=== PATIENT | female | born 1945 | race Caucasian/White ===

== ENCOUNTER 2023-09-14 07:12 | Outpatient (CLI) | payer OTHER | END 2023-09-14 07:14 | disposition home or self-care (01) | LOC: MRI 07:12 | PROVIDERS: ATTEND Internal Medicine | DX: G44.009 Cluster headache syndrome, unspecified, not intractable (principal); G30.8 Other Alzheimer's disease | CPT/HCPCS: 70553; Q9965; 70552 ==